=== PATIENT | female | born 1985 | race Caucasian/White ===

== ENCOUNTER 2017-04-07 17:05 | Emergency (ER) | payer MEDICAID ==
[~2017-04-07] VITALS: Ht 154.9 cm; Wt 50.3 kg
[2017-04-07 19:45] VITALS: BP 124/70
== END 2017-04-07 20:09 | disposition home or self-care (01) ==
LOC: ER 17:09
DX: O20.0 Threatened abortion (principal); Z3A.01 Less than 8 weeks gestation of pregnancy
CPT/HCPCS: 36415; 76801; 76817; 84702

== ENCOUNTER → 2017-04-24 | Outpatient (CLI) | payer MEDICAID ==
[2017-04-24 10:55] LABS: Basophils # (auto) 0.1 uL; Basophils % (auto) 0.6 % (0.0-2.0); Eosinophils # (auto) 0 uL; Eosinophils % (auto) 0.2 % (0.0-7.0); Hematocrit 38.9 % (36.0-46.0); Hemoglobin 13.2 g/dL (12.2-16.2); Lymphocytes # (auto) 1.1 uL; Lymphocytes % (auto) 12.4 % (10.0-50.0); Mean Corpuscular Volume 91.1 fL (80.0-100.0); Monocytes # (auto) 0.4 uL; Monocytes % (auto) 4.3 % (0.0-12.0); Neutrophils # (auto) 7.1 uL; Neutrophils % (auto) 82.5 % (37.0-80.0); Platelet Count (auto) 231 10^3/uL (140-450); Red Blood Cells 4.27 10^6/uL (4.0-5.20); Red Cell Distribution Width 13.1 % (11.8-14.3); White Blood Cell 8.6 10^3/uL (4.4-10.8)
[2017-04-24 11:55] LABS: Alcohol, Urine < 3.0 mg/dL (0-5); Amphetamine Screen, Urine NEGATIVE (NEGATIVE); Barbiturate Scree,Urine NEGATIVE (NEGATIVE); Benzodiazephine Screen, Urine NEGATIVE (NEGATIVE); Cannabinoid Screen, Urine POSITIVE (NEGATIVE); Cocaine Screen, Urine NEGATIVE (NEGATIVE); Opiate Scree,Urine NEGATIVE (NEGATIVE); Phencyclidine Screen, Urine NEGATIVE (NEGATIVE)
== END | disposition home or self-care (01) ==
LOC: LAB 10:18
PROVIDERS: ATTEND Specialist
DX: Z34.91 Encounter for supervision of normal pregnancy, unspecified, first trimester (principal); Z3A.01 Less than 8 weeks gestation of pregnancy
CPT/HCPCS: 36415; 80307; 83036; 84702; 85025; 86762; 86850; 86900; 86901; 87086; 87340; 87591

== ENCOUNTER 2017-06-09 03:49 | Day surgery (SDC) | payer MEDICAID ==
[~2017-06-09] VITALS: Ht 154.9 cm; Wt 52.3 kg
[2017-06-09] MEDS ORDERED: LACTATED RINGER'S 1,000 ML IV ONE (06:30)
[2017-06-09 06:39] LABS: Basophils # (auto) 0 uL; Basophils % (auto) 0.4 % (0.0-2.0); Eosinophils # (auto) 0.1 uL; Eosinophils % (auto) 0.7 % (0.0-7.0); Hematocrit 36.7 % (36.0-46.0); Hemoglobin 12.7 g/dL (12.2-16.2); Lymphocytes # (auto) 1.2 uL; Lymphocytes % (auto) 12.5 % (10.0-50.0); Mean Corpuscular Hemoglobin 31.3 pg (28.0-32.0); Mean Corpuscular Hgb Conc. 34.5 g/dL (32.0-36.0); Mean Corpuscular Volume 90.7 fL (80.0-100.0); Monocytes # (auto) 0.4 uL; Monocytes % (auto) 4.7 % (0.0-12.0); Neutrophils # (auto) 7.7 uL; Neutrophils % (auto) 81.7 % (37.0-80.0); Nucleated Red Blood Cells % 0.1 %; Platelet Count (auto) 226 10^3/uL (140-450); Red Blood Cells 4.04 10^6/uL (4.0-5.20); Red Cell Distribution Width 12.7 % (11.8-14.3); White Blood Cell 9.4 10^3/uL (4.4-10.8)
[2017-06-09 06:47] LABS: INR 0.86 (0.9-1.15); Partial Thromboplastin Time 29.6 sec (22.64-33.71); Prothrombin Time 9.4 sec (9.37-12.3)
[2017-06-09 06:54] LABS: Albumin 3.3 g/dL (3.4-5.0); Calcium 9.2 mg/dL (8.5-10.1)
[2017-06-09 06:56] LABS: Bilirubin, Total 0.2 mg/dL (0.2-1.0)
[2017-06-09] MEDS ORDERED: ceFAZolin 1GM/50ML 50 ML IV ONE (08:13)
[2017-06-09] MEDS ORDERED: PROPOFOL 10 MG/ML 20 ML IV ONE (08:50)
[2017-06-09] MEDS ORDERED: fentaNYL CITRATE 100 MCG/2 ML VL ONE (08:50)
[2017-06-09] MEDS ORDERED: LACTATED RINGER'S 1,000 ML IV SCH (09:23)
[2017-06-09] MEDS ORDERED: MORPHINE SULFATE 8mg/ml INJ SDV IV PRN (09:30)
[2017-06-09] MEDS ORDERED: ONDANSETRON HCL 4 MG/2 ML VIAL IV PRN (09:30)
[2017-06-09] MEDS ORDERED: ONDANSETRON HCL 4 MG/2 ML VIAL IV ONE (09:30)
[2017-06-09 10:11] VITALS: BP 111/62
== END 2017-06-09 11:08 | disposition home or self-care (01) ==
LOC: ER 03:49 → SUR 03:50 → ER 08:06 → SUR 11:08
PROVIDERS: ATTEND Specialist
DX: O34.32 Maternal care for cervical incompetence, second trimester (principal); Z3A.14 14 weeks gestation of pregnancy
CPT/HCPCS: 59320; J3010; 36415; 80053; 84702; 85025; 85610; 85730; 86850; 86900; 86901; J0690; J2405; J2704

== ENCOUNTER → 2017-06-26 | Outpatient (CLI) | payer MEDICAID | END | disposition home or self-care (01) | LOC: LAB 08:00 | PROVIDERS: ATTEND Specialist | DX: Z34.92 Encounter for supervision of normal pregnancy, unspecified, second trimester (principal); Z3A.17 17 weeks gestation of pregnancy | CPT/HCPCS: 87591 ==

== ENCOUNTER → 2017-08-15 | Outpatient (CLI) | payer MEDICAID ==
[2017-08-15 08:32] LABS: Basophils # (auto) 0 uL; Basophils % (auto) 0.5 % (0.0-2.0); Eosinophils # (auto) 0.1 uL; Eosinophils % (auto) 1.6 % (0.0-7.0); Hematocrit 35.4 % (36.0-46.0); Lymphocytes # (auto) 1.4 uL; Lymphocytes % (auto) 19.1 % (10.0-50.0); Monocytes # (auto) 0.4 uL; Monocytes % (auto) 5.4 % (0.0-12.0); Neutrophils # (auto) 5.5 uL; Neutrophils % (auto) 73.4 % (37.0-80.0); Platelet Count (auto) 191 10^3/uL (140-450); Red Blood Cells 3.89 10^6/uL (4.0-5.20); Red Cell Distribution Width 13.2 % (11.8-14.3); White Blood Cell 7.4 10^3/uL (4.4-10.8)
== END | disposition home or self-care (01) ==
LOC: LAB 07:56
PROVIDERS: ATTEND Specialist
DX: O99.810 Abnormal glucose complicating pregnancy (principal); Z3A.25 25 weeks gestation of pregnancy
CPT/HCPCS: 36415; 82951; 85025

== ENCOUNTER → 2017-10-31 | Outpatient (CLI) | payer MEDICAID ==
[2017-10-31 12:03] LABS: Basophils # (auto) 0 uL; Basophils % (auto) 0.4 % (0.0-2.0); Eosinophils # (auto) 0 uL; Eosinophils % (auto) 0.6 % (0.0-7.0); Hematocrit 37.1 % (36.0-46.0); Hemoglobin 12.4 g/dL (12.2-16.2); Lymphocytes # (auto) 1.5 uL; Lymphocytes % (auto) 17.6 % (10.0-50.0); Mean Corpuscular Hemoglobin 30.9 pg (28.0-32.0); Mean Corpuscular Hgb Conc. 33.5 g/dL (32.0-36.0); Mean Corpuscular Volume 92.3 fL (80.0-100.0); Monocytes # (auto) 0.4 uL; Monocytes % (auto) 5.1 % (0.0-12.0); Neutrophils # (auto) 6.3 uL; Neutrophils % (auto) 76.3 % (37.0-80.0); Platelet Count (auto) 201 10^3/uL (140-450); Red Blood Cells 4.02 10^6/uL (4.0-5.20); Red Cell Distribution Width 13.1 % (11.8-14.3); White Blood Cell 8.3 10^3/uL (4.4-10.8)
[2017-11-01 07:05] LABS: RPR Non Reactive (Non Reactive)
== END | disposition home or self-care (01) ==
LOC: LAB 11:28
PROVIDERS: ATTEND Specialist
DX: Z34.83 Encounter for supervision of other normal pregnancy, third trimester (principal); Z3A.35 35 weeks gestation of pregnancy
CPT/HCPCS: 36415; 85025; 86592

== ENCOUNTER 2017-11-18 10:05 | Observation (INO) | payer MEDICAID ==
[2017-11-18] MEDS ORDERED: NIF10C GT (12:37)
[2017-11-18] MEDS ORDERED: PREN-96 PO (12:37)
== END 2017-11-18 11:25 | disposition home or self-care (01) | DRG 566 ==
LOC: LDRP 10:05
PROVIDERS: ADMIT Specialist; ATTEND Specialist
DX: O36.5990 Maternal care for other known or suspected poor fetal growth, unspecified trimester, not applicable or unspecified (principal); Z3A.00 Weeks of gestation of pregnancy not specified
CPT/HCPCS: 59025; 76818; 81002; G0378

== ENCOUNTER 2017-11-22 08:40 | Observation (INO) | payer MEDICAID ==
[~2017-11-22 08:40] MED LIST: NIF10C GT; PREN-96 PO
== END 2017-11-22 10:40 | disposition home or self-care (01) | DRG 566 ==
LOC: EDSEX → LDRP 08:40
PROVIDERS: ADMIT Specialist; ATTEND Specialist
DX: O36.5930 Maternal care for other known or suspected poor fetal growth, third trimester, not applicable or unspecified (principal); Z3A.38 38 weeks gestation of pregnancy
CPT/HCPCS: 59025; 76818; 81002; G0378

== ENCOUNTER 2017-11-23 15:30 | Observation (INO) | payer MEDICAID ==
[2017-11-23] MEDS ORDERED: LACTATED RINGER'S 2,000 ML IV ONE (17:30)
[2017-11-23 18:19] LABS: Urine Amorphous Crystal FEW /hpf (None Seen); Urine Bacteria FEW /hpf (None Seen); Urine Blood Negative /uL (Negative); Urine Mucus FEW (None Seen); Urine Specific Gravity 1.007 (1.001-1.035); Urine WBC 15 /hpf (0 - 5); Urine WBC Clumps PRESENT /hpf (None Seen)
[2017-11-23 18:20] LABS: Alcohol, Urine < 3.0 mg/dL (0-5); Amphetamine Screen, Urine NEGATIVE (NEGATIVE); Barbiturate Scree,Urine NEGATIVE (NEGATIVE); Benzodiazephine Screen, Urine NEGATIVE (NEGATIVE); Cannabinoid Screen, Urine NEGATIVE (NEGATIVE); Cocaine Screen, Urine NEGATIVE (NEGATIVE); Opiate Scree,Urine NEGATIVE (NEGATIVE); Phencyclidine Screen, Urine NEGATIVE (NEGATIVE)
== END 2017-11-23 19:23 | disposition home or self-care (01) | DRG 566 ==
LOC: EDSEX → LDRP 15:30
PROVIDERS: ADMIT Obstetrics & Gynecology; ATTEND Obstetrics & Gynecology
DX: O26.893 Other specified pregnancy related conditions, third trimester (principal); Z3A.31 31 weeks gestation of pregnancy
CPT/HCPCS: 59025; 76815; 80307; 81001; 81002; G0378; 96361; 96366

== ENCOUNTER 2017-11-24 07:26 | Observation (INO) | payer MEDICAID | END 2017-11-24 08:40 | disposition home or self-care (01) | DRG 566 | LOC: EDSEX → LDRP 07:26 | PROVIDERS: ADMIT Obstetrics & Gynecology; ATTEND Obstetrics & Gynecology | DX: O41.03X0 Oligohydramnios, third trimester, not applicable or unspecified (principal); O36.5930 Maternal care for other known or suspected poor fetal growth, third trimester, not applicable or unspecified; Z3A.38 38 weeks gestation of pregnancy | CPT/HCPCS: 59025; 76815; 76818; 81002; G0378 ==

== ENCOUNTER 2017-11-28 03:42 | Inpatient (IN) | payer MEDICAID ==
[~2017-11-28] VITALS: Ht 154.9 cm; Wt 66.2 kg
[2017-11-28] VITALS (18 sets, daily range): BP systolic 58–112; BP diastolic 43–70
[2017-11-28] MEDS ORDERED: LACTATED RINGER'S 1,000 ML IV SCH (05:00)
[2017-11-28 05:50] LABS: Basophils # (auto) 0 uL; Basophils % (auto) 0.5 % (0.0-2.0); Eosinophils # (auto) 0.1 uL; Eosinophils % (auto) 0.8 % (0.0-7.0); Hematocrit 37.8 % (36.0-46.0); Hemoglobin 12.9 g/dL (12.2-16.2); Lymphocytes # (auto) 1.7 uL; Lymphocytes % (auto) 22.6 % (10.0-50.0); Mean Corpuscular Volume 94.1 fL (80.0-100.0); Monocytes # (auto) 0.5 uL; Monocytes % (auto) 6.1 % (0.0-12.0); Neutrophils # (auto) 5.3 uL; Nucleated Red Blood Cells % 0.2 %; Platelet Count (auto) 186 10^3/uL (140-450); Red Blood Cells 4.02 10^6/uL (4.0-5.20); Red Cell Distribution Width 13.3 % (11.8-14.3); White Blood Cell 7.5 10^3/uL (4.4-10.8)
[2017-11-28 06:09] LABS: INR 0.85 (0.9-1.15); Partial Thromboplastin Time 28.2 sec (23.78-33.04); Prothrombin Time 9.2 sec (9.27-12.13)
[2017-11-28 06:12] LABS: Albumin 2.9 g/dL (3.4-5.0); BUN/Creatinine Ratio 17.5; Calcium 8.7 mg/dL (8.5-10.1); Potassium 3.7 mmol/L (3.5-5.1)
[2017-11-28 06:15] LABS: Bilirubin, Total 0.2 mg/dL (0.2-1.0); Total Protein 6.6 g/dL (6.4-8.2)
[2017-11-28 06:24] LABS: Urine Amorphous Crystal FEW /hpf (None Seen); Urine Bacteria FEW /hpf (None Seen); Urine Blood Negative /uL (Negative); Urine Specific Gravity 1.009 (1.001-1.035); Urine WBC 6 /hpf (0 - 5)
[2017-11-28 06:35] LABS: Alcohol, Urine < 3.0 mg/dL (0-5); Amphetamine Screen, Urine NEGATIVE (NEGATIVE); Barbiturate Scree,Urine NEGATIVE (NEGATIVE); Benzodiazephine Screen, Urine NEGATIVE (NEGATIVE); Cannabinoid Screen, Urine NEGATIVE (NEGATIVE); Cocaine Screen, Urine NEGATIVE (NEGATIVE); Opiate Scree,Urine NEGATIVE (NEGATIVE); Phencyclidine Screen, Urine NEGATIVE (NEGATIVE)
[2017-11-28] MEDS ORDERED: TETRACAINE 1% INJ 2 ML VIAL IJ ONE (07:28)
[2017-11-28] MEDS ORDERED: PHENYLEPHRINE HCL 10 MG/ML VL IV ONE (08:32)
[2017-11-28] MEDS ORDERED: MORPHINE SULF(PF) 0.5MG/ML 10ML VIAL ONE (08:41)
[2017-11-28] MEDS ORDERED: fentaNYL CITRATE 100 MCG/2 ML VL ONE (08:41)
[2017-11-28] MEDS ORDERED: MIDAZOLAM HCL 1MG/1ML-2 ML VIAL ONE (08:41)
[2017-11-28] MEDS ORDERED: OXYTOCIN 10 UNIT/ML 10ML VIAL ONE (08:51)
[2017-11-28] MEDS ORDERED: ePHEDrine SULFATE 50 MG/ML AMP IV PRN (10:00)
[2017-11-28] MEDS ORDERED: MORPHINE SULFATE 4 MG/ML SYR/VIAL IV ONE (10:00)
[2017-11-28] MEDS ORDERED: diphenhdrAMINE HCL 50 MG/1 ML VL IV PRN (10:00)
[2017-11-28] MEDS ORDERED: HYDROmorphone HCL 2 MG/ML VL IV PRN (10:00)
[2017-11-28] MEDS ORDERED: NALOXONE HCL 0.4 MG/ML VIAL IV PRN (10:00)
[2017-11-28] MEDS ORDERED: ONDANSETRON HCL 4 MG/2 ML VIAL IV PRN ×2 (10:00→10:15)
[2017-11-28] MEDS ORDERED: LABETALOL HCL 5 MG/ML 4ML SYRINGE IV PRN (10:00)
[2017-11-28] MEDS ORDERED: MIDAZOLAM HCL 1MG/1ML-2 ML VIAL IV PRN (10:00)
[2017-11-28] MEDS ORDERED: DEXAMETHASONE SOD PHOS 10MG/1ML VIAL INJ IV PRN (10:00)
[2017-11-28] MEDS ORDERED: NALBUPHINE HCL 10 MG/1ml INJECTION SUBCUT ONE (10:00)
[2017-11-28] MEDS ORDERED: KETOROLAC TROMETH 30 MG/ML 1ML VIAL IV PRN (10:00)
[2017-11-28] MEDS: LACTATED RINGER'S 1,000 ML IV SCH (10:01)
[2017-11-28] MEDS ORDERED: MORPHINE SULFATE 4 MG/ML SYR/VIAL IV PRN (10:15)
[2017-11-28] MEDS ORDERED: METOCLOPRAMIDE HCL 5MG/ml INJ 2ml VIAL IV ONE (10:30)
[2017-11-28] MEDS ORDERED: ceFAZolin 1GM/50ML 50 ML IV SCH (10:30)
[2017-11-28] MEDS ORDERED: METOCLOPRAMIDE HCL 5MG/ml INJ 2ml VIAL ONE (10:30)
[2017-11-28] MEDS: KETOROLAC TROMETH 30 MG/ML 1ML VIAL IV SCH ×2 (12:30→17:50)
[2017-11-28] MEDS: ceFAZolin 1GM/50ML 50 ML IV SCH (16:46)
[2017-11-29] VITALS (9 sets, daily range): BP systolic 99–117; BP diastolic 52–75
[2017-11-29] MEDS: LACTATED RINGER'S 1,000 ML IV SCH ×3 (00:16→20:02)
[2017-11-29] MEDS: KETOROLAC TROMETH 30 MG/ML 1ML VIAL IV SCH ×2 (00:17→05:45)
[2017-11-29] MEDS: ceFAZolin 1GM/50ML 50 ML IV SCH ×2 (00:22→08:55)
[2017-11-29 06:51] LABS: Basophils # (auto) 0 uL; Basophils % (auto) 0.4 % (0.0-2.0); Eosinophils # (auto) 0 uL; Eosinophils % (auto) 0.4 % (0.0-7.0); Hematocrit 33.7 % (36.0-46.0); Hemoglobin 11.7 g/dL (12.2-16.2); Lymphocytes # (auto) 1.5 uL; Lymphocytes % (auto) 15.2 % (10.0-50.0); Mean Corpuscular Hemoglobin 32.1 pg (28.0-32.0); Mean Corpuscular Hgb Conc. 34.6 g/dL (32.0-36.0); Mean Corpuscular Volume 92.8 fL (80.0-100.0); Monocytes # (auto) 0.7 uL; Monocytes % (auto) 6.6 % (0.0-12.0); Neutrophils # (auto) 7.7 uL; Neutrophils % (auto) 77.4 % (37.0-80.0); Platelet Count (auto) 155 10^3/uL (140-450); Red Blood Cells 3.63 10^6/uL (4.0-5.20); Red Cell Distribution Width 13.3 % (11.8-14.3)
[2017-11-29 07:06] LABS: RPR Non Reactive (Non Reactive)
[2017-11-29] MEDS ORDERED: SIMETHICONE 80 MG CHEWABLE TABLET PO PRN (09:00)
[2017-11-29] MEDS: HYDROcodone-ACET 5/325MG TAB PO PRN ×3 (09:53→23:07)
[2017-11-29] MEDS: DOCUSATE SOD 100 MG CAP PO SCH ×2 (09:54→22:16)
[2017-11-29] MEDS: IBUPROFEN 800 MG TAB PO PRN (18:14)
[2017-11-30] VITALS (7 sets, daily range): BP systolic 97–111; BP diastolic 50–69
[2017-11-30] MEDS: LACTATED RINGER'S 1,000 ML IV SCH (05:00)
[2017-11-30] MEDS: IBUPROFEN 800 MG TAB PO PRN ×3 (06:10→23:56)
[2017-11-30] MEDS: DOCUSATE SOD 100 MG CAP PO SCH ×2 (10:13→23:56)
[2017-11-30] MEDS: HYDROcodone-ACET 5/325MG TAB PO PRN ×2 (11:51→17:52)
[2017-11-30] MEDS ORDERED: BISACODYL 10 MG RECT SUPP PR PRN (23:00)
[2017-12-01 03:30] VITALS: BP 111/70
[2017-12-01 07:10] VITALS: BP 122/68
[2017-12-01] MEDS ORDERED: INFLUENZA QUAD 2018-2019 0.5 ML SYRG IM ONE (08:00)
== END 2017-12-01 09:15 | disposition home or self-care (01) | DRG 540 ==
LOC: LDRP 03:42 → EDSEX 03:42 → LDRP 23:05
PROVIDERS: ADMIT Obstetrics & Gynecology; ATTEND Obstetrics & Gynecology
PROC: 10D00Z1 Extraction of Products of Conception, Low, Open Approach (ICD-10-PCS; principal; 2017-11-28 08:32)
PROC: 0UCC7ZZ Extirpation of Matter from Cervix, Via Natural or Artificial Opening (ICD-10-PCS; 2017-11-28 08:32)
DX: O99.824 Streptococcus B carrier state complicating childbirth (principal); O34.33 Maternal care for cervical incompetence, third trimester; O34.211 Maternal care for low transverse scar from previous cesarean delivery; Z37.0 Single live birth; Z3A.39 39 weeks gestation of pregnancy
CPT/HCPCS: 36415; 59025; 80053; 80307; 81001; 85025; 85610; 85730; 86592; 86850; 86900; 86901; 90674; 94762; 96365; 96366; 96375; J0690; J1885; J2250; J2405; J2590

== ENCOUNTER 2024-08-05 10:17 | Emergency (ER) | payer BC, MEDICAID ==
[~2024-08-05] VITALS: Ht 154.9 cm; Wt 51.3 kg
[~2024-08-05 10:17] MED LIST changes: -NIF10C GT
--- NOTE | 2024-08-05 10:31 | ED.PDOC ---
History of Present Illness HPI Comments 38 year old female with a Surgical History of C-Sections, and Tubes reversed presents to the ED for the c/c of Abnormal Vaginal Bleeding. Pt states that she is currently 6x weeks , and started spotting yesterday, and bleeding heavy today/. Pt denies any PMHx or other associated factors at this time. Time Seen by MD: 10:28 Primary Care Provider: INOCENCIA Ku Notes: Nurses Notes, Medications, Allergies Allergies: Coded Allergies: NO KNOWN ALLERGIES (Unverified , 04/07/17) Home Meds Reported Medications Vit W/ Ferrous Fumara ( One Daily) Daily Tab, 1 TAB PO DAILY, #90 TAB 3 Refills 11/18/17 Information Source: Patient Mode of Arrival: Ambulatory Severity: Moderate Timing: Days Duration: Since onset, Days Prehospital treatment: None Past Medical History PAST MEDICAL HISTORY: Denies Surgical History: Tubal Ligation LATHMAKER History: Denies all LATHMAKER Hx Family History Family History: Unknown Social History Smoker: Non-Smoker Alcohol: Denies ETOH Use Drugs: Denies Drug Use Lives In: Home Constitutional: denies: chills, diaphoresis, fatigue, fever, malaise, sweats, weakness, others EENTM: denies: blurred vision, double vision, ear bleeding, ear discharge, ear drainage, ear pain, ear ringing, eye pain, eye redness, hearing loss, mouth pain, mouth swelling, nasal discharge, nose bleeding, nose congestion, nose pain, photophobia, tearing, throat pain, throat swelling, voice changes, others Respiratory: denies: cough, hemoptysis, orthopnea, SOB at rest, shortness of breath, SOB with excertion, stridor, wheezing, others Cardiovascular: denies: chest pain, dizzy spells, diaphoresis, Dyspnea on exertion, edema, irregular heart beat, left arm pain, lightheadedness, palpitations, PND, syncope, others Gastrointestinal: denies: abdomen distended, abdominal pain, blood streaked bowels, constipated, diarrhea, dysphagia, difficulty swallowing, hematemesis, melena, nausea, poor appetite, poor fluid intake, rectal bleeding, rectal pain, vomiting, others Genitourinary: reports: abnormal vagina bleeding, ; denies: burning, dyspareunia, dysuria, flank pain, frequency, hematuria, incontinence, pain, vagina discharge, urgency, others Neurological: denies: dizziness, fainting, headache, left sided numbness, left sided weakness, numbness, paresthesia, pre-existing deficit, right sided numbness, right sided weakness, seizure, speech problems, tingling, tremors, weakness, others Musculoskeletal: denies: back pain, gout, joint pain, joint swelling, muscle pain, muscle stiffness, neck pain, others Integumetry: denies: bruises, change in color, change in hair/nails, dryness, laceration, lesions, lumps, rash, wounds, others Allergic/Immunocompromised: denies: Difficulty Healing, Frequent Infections, Hives, Itching, others Hematologic/Lymphatic: denies: anemia, blood clots, easy bleeding, easy bruising, swollen glands, others Endocrine: denies: excessive hunger, excessive sweating, excessive thirst, excessive urination, flushing, intolerance to cold, intolerance to heat, unexplained weight gain, unexplained weight loss, others Psychiatric: denies: anxiety, bipolar disorder, depression, hopeless, panic disorder, schizophrenia, sleepless, suicidal, others All Other Systems: Reviewed and Negative Physical Exam General Appearance: Mild Distress HEENT: Normal ENT Inspection, Pharynx Normal, TMs Normal Neck: Full Range of Motion, Non-Tender, Normal, Normal Inspection Respiratory: Chest Non-Tender, Lungs Clear, No Accessory Muscle Use, No Respir atory Distress, Normal Breath Sounds Cardiovascular: No Edema, No JVD, No Murmur, No Gallop, Normal Peripheral Pulses, Regular Rate/Rhythm Breast Exam: Deferred Gastrointestinal: No Organomegaly, Non Tender, No Pulsatile Mass, Normal Bowel Sounds, Soft Genitalia: Deferred Pelvic: Deferred Rectal: Deferred Extremities: No calf tenderness, Normal capillary refill, Normal inspection, Normal range of motion, Non-tender, No pedal edema Musculoskeletal : Apperance: Normal Neurologic: Alert, crimp setter II-XII nml as Tested, No Motor Deficits, Normal Affect, Normal Mood, No Sensory Deficits Cerebellar Function: Normal Reflexes: Normal Skin: Dry, Normal Color, Warm Lymphatic: No Adenopathy Was a procedure done? Was a procedure done?: No Differential Dx Considerations may include: Ectopic , abdominal pain, generalized weakness X-Ray, Labs, Meds, VS Vital Signs Date Time Temp Pulse Resp B/P (MAP) Pulse Ox O2 Delivery O2 Flow Rate FiO2 08/05/24 11:09 16 Room Air* 0 21 08/05/24 11:08 94 18 98 Room Air 08/05/24 11:08 97.9 84 18 142/82 (102) 98 97.9 08/05/24 10:30 98.2 114 16 157/83 (107) 98 98.2 Lab Test 08/05/24 10:46 08/05/24 10:25 Range/Units Beta HCG, Quantitative 208.2 H 1.5-4.2 mIU/mL Urine Color Light-yellow Yellow Urine Clarity Turbid H Clear Urine pH 6.0 5.0-9.0 Urine Specific [place]com 1.015 1.001-1.035 Urine Protein Negative Negative Urine Ketones 3+ H Negative Urine Blood 3+ H Negative /uL Urine Nitrite Negative Negative Urine Bilirubin Negative Negative Urine Urobilinogen Normal Negative mg/dL Urine Leukocyte Esterase Negative Negative /uL Urine RBC 59 0 - 4 /hpf Urine Microscopic WBC 2 0-5 /HPF Urine Squamous Epithelial Cells Few <5 /hpf Urine Bacteria None seen None Seen /hpf Urine Mucus Few None Seen Urine Glucose Normal Normal mg/dL IMPRESSION: Gestational sac measuring 0.3 cm with no pole visualized at this time. Recommend correlation with beta HCG and short-term follow-up pelvic ultrasound. Possible Hemorrhagic corpus luteal cyst in the right ovary measuring 1.7 cm. Possible solid structure in the right adnexa measuring 2.1 cm of indeterminate etiology. IMPRESSION: Gestational sac measuring 0.3 cm with no pole visualized at this time. Recommend correlation with beta HCG and short-term follow-up pelvic ultrasound. Possible Hemorrhagic corpus luteal cyst in the right ovary measuring 1.7 cm. Possible solid structure in the right adnexa measuring 2.1 cm of indeterminate etiology. The patient was evaluated by Dr. Silva who is the OBGYN on-call The patient will follow up with her appointment on The urine test is negative at this time The quantitative hCG is 208.2 At this time the patient is being discharged and will follow up with her OBGYN and Images Reviewed?: Images reviewed and evaluated by me Time of 1ST Reevaluation: 10:58 Reevaluation 1ST: Unchanged Patient Education/Counseling: Diagnosis, Treatment, Prognosis Family Education/Counseling: No Family Present SEPSIS Sepsis Screen Physician Orders Ob Ultrasound Comp Less 14wks (08/05/24 10:28) Ob Trans Vaginal Us (08/05/24 ) Vital Signs Date Time Temp Pulse Resp B/P (MAP) Pulse Ox O2 Delivery O2 Flow Rate FiO2 08/05/24 11:09 16 Room Air* 0 21 08/05/24 11:08 94 18 98 Room Air 08/05/24 11:08 97.9 84 18 142/82 (102) 98 97.9 08/05/24 10:30 98.2 114 16 157/83 (107) 98 98.2 Departure 1 Departure Time of Disposition: 12:57 Impression: Primary Impression: Threatened Disposition: 01 HOME / SELF CARE / HOMELESS Condition: Fair Discharged With: Self Critical Care Note Critical Care Time?: No Stability Stability form required: No Heart Score Heart Score: Heart Score Response (Comments) Value History N/A 0 EKG N/A 0 Age N/A 0 Risk Factors N/A 0 Troponin N/A 0 Total 0 I personally scribed for PEYTON DEWITT MD ([email or web address]) on 08/05/24 at 10:31. Electronically submitted by Matt Montalvo ([email or web address]). I personally scribed for PEYTON DEWITT MD ([email or web address]) on 08/05/24 at 12:47. Electronically submitted by Matt Montalvo ([email or web address]). PEYTON DEWITT MD Aug 05, 2024 10:31
[2024-08-05 11:08] VITALS: BP 142/82; PULSE 94; TEMP 97.9; O2SAT 98
[2024-08-05 11:09] VITALS: RESP 16
[2024-08-05 12:03] LABS: Urine Bacteria None Seen /hpf (None Seen)
[2024-08-05 12:21] LABS: Urine Blood 3+ /uL (Negative); Urine Clarity Turbid (Clear); Urine Color Light-Yellow (Yellow); Urine Mucus FEW (None Seen); Urine Protein, UAD Negative (Negative); Urine Specific Gravity 1.015 (1.001-1.035); Urine Squamous Epithelial Cell FEW /hpf (<5); Urine Urobilinogen Normal (Negative); Urine WBC 2 /HPF (0-5)
--- NOTE | 2024-08-05 12:40 | DVH ---
OB ULTRASOUND <14 WEEKS: HISTORY: vag bleeding TECHNIQUE: Multiple real-time grayscale sonographic images of the pelvis with duplex Doppler color f low, spectral and M-mode analysis. TRANSDUCERS: Transabdominal and transvaginal FINDINGS: The uterus measures 10.2 x 5.1 x 5.5 cm. The cervix not well visualized Right ovary measures 3.3 x 3.5 x 2.0 cm with normal Doppler color flow. Possible Hemorrhagic corpus luteal Cyst in the right ovary measuring 1.7 cm. Possible solid structure in the right adnexa measuri ng 2.1 cm of indeterminate etiology. Left ovary measures 2.4 x 3.0 x 1.4 cm with normal Doppler color flow Gestational sac is visualized in the endometrial cavity measuring 0.3 cm. No pole or heart rate detected at this time. No yolk sac visualized. IMPRESSION: Gestational sac measuring 0.3 cm with no pole visualized at this time. Recommend correlation w ith beta HCG and short-term follow-up pelvic ultrasound. Possible Hemorrhagic corpus luteal cyst in the right ovary measuring 1.7 cm. Possible solid structure in the right adnexa measuring 2.1 cm of indeterminate etiology.
--- NOTE | 2024-08-05 13:24 | DVHINCON2 ---
Date of service: Aug 05, 2024 Referring Physician Young ER attending Reason for Consultation Patient has been bleeding for several weeks estimated at 6 weeks last menstrual period June 23, 2019 ; patient well known to Mariana Andino her primary gynecology teacher. She has been followed closely weekly for threatened SAB. Today ultrasound shows sac intrauterine questionable viability and some suspicious adnexal solid cystic lesion can not rule out ectopic. Quant HCG 250. On exam today she has no significant peritoneal signs no cervical motion tenderness cervix is closed. She has a follow up appointment with her primary Dr. Andino this which I encouraged her to keep and she will be given copies of her quant HCG as well as ultrasound findings in the ER today. I did counts were with regards to worsening bleeding severe pain if those were to occur she is to follow up BRANDIE NPO for possible D and C diagnostic laparoscopy. History of Present Illness History Source: Patient Exam Limitations: No limitations Home Meds Reported Medications Vit W/ Ferrous Fumara ( One Daily) Daily Tab, 1 TAB PO DAILY, #90 TAB 3 Refills 11/18/17 Chief Complaint of Abdominal/F: Other (Patient denies any pelvic abdominal pain) Past Medical History Cardiac: No pertinent Hx Pulmonary: No pertinent Hx Central Nervous System: No pertinent Hx GI: No pertinent Hx Hemotology/Oncology: No pertinent Hx Hepatobiliary: No pertinent Hx Psychiatric: No pertinent Hx Musculoskeletal: No pertinent Hx Rheumotologic: No pertinent Hx Infectious Disease: No peritnent Hx ENT: No pertinent Hx Renal/: No pertinent Hx Endocrine: No pertinent Hx Dermatology: No pertinent Hx Past Surgical History: (Cysts section x4 with a recent tubal reanastomosis as she lost her 1st child in a MVA who was her only son and they are trying to conceive a boy once again.) Family History: No pertinent Hx Review of Systems Constitutional: No symptom reported Ears, Nose, & Throat: No symptom reported Eyes: No symptom reported Pulmonary/Respiratory: No symptom reported Cardiovascular: No symptom reported Gastrointestinal: No symptom reported Genitourinary: No symptom reported Musculoskeletal: No symptom reported Skin: No symptom reported Psychiatric: No symptom reported Endocrine: No symptom reported Hemotologic/Lymphatic: No symptom reported H&P Exam Vital Signs Vital Signs Date Time Temp Pulse Resp B/P (MAP) Pulse Ox O2 Delivery O2 Flow Rate FiO2 08/05/24 11:09 16 Room Air* 0 21 08/05/24 11:08 94 98 08/05/24 11:08 97.9 142/82 (741) 97.9 General Appeara: Well developed, Well nourished, Normal Appearance Head Exam: Normal inspection Neck Exam: Normal inspection, Non-tender, Normal alignment Eye Exam: bilateral eye Normal inspection, bilateral eye PERRL, bilateral eye EOMI Ear Exam: bilateral ear Auricle normal, bilateral ear Canal normal, bilateral ear TM normal Nasal Exam: Normal inspection Mouth: Normal Inspection Pulmonary/Respiratory: Normal inspection, Normal breath sounds, Chest non- tender, Lungs clear Cardiovascular/Chest: Normal inspection, Regular rate, Normal Rhythm Abdominal Exam: Normal bowel sounds, Soft, No tenderness, No hepatospenomegaly, No masses Rectal Exam: Normal inspection Back Exam: Normal inspection Pelvic Exam: External exam normal, Bimanual exam normal, Speculum exam normal Male Genital Exam: Normal genitalia, Normal prostate Shoulder Exam: Normal inspection, Non-tender, Normal ROM Elbow/Forearm Exam: Normal inspection, Non-tender, Normal ROM Wrist Exam: Normal inspection, Non-tender, Normal ROM Hand Exam: Normal inspection, Non-tender, Normal ROM Hip exam: Normal inspection, Non-tender, Normal range of motion Legs: bilateral leg non-tender, bilateral leg normal inspection, bilateral leg normal range of motion, bilateral leg no evidence of injury Knees: bilateral knee non-tender, bilateral knee normal inspection, bilateral knee normal range of motion, bilateral knee no evidence of injury Ankle Exam: bilateral ankle Normal inspection, bilateral ankle Non-tender, bilateral ankle Normal range of motion, bilateral ankle No evidence of injury Foot: bilateral foot non-tender, bilateral foot normal inspection, bilateral foot normal range of motion, bilateral foot no evidence of injury Tendon/ Neuro: Normal sensation, Normal motor function, Normal tendon functions STUDENT DEVELOPMENT ADVISOR Exam: Normal hearing, Normal speech, PERRL Motor/Sensory: Normal sensory function, Normal motor function, Negative Babinski's sign Deep Tendon Ref: All intact Neuro/Mental St: Alert, Oriented Appearance: Appropriate appearance, Appropriate insight Eye contact/ Speech: Cooperative, Good eye contact, Normal speech Coordination/Gait: Normal finger->nose, Normal gait, Negative Romberg's sign Skin Exam: Normal inspection, Normal color, Warm/dry Lymphatic: Normal inspection Comments Abdomen soft positive bowel sounds no peritoneal signs no cervical motion tenderness cervix closed minimal old venous blood no active bleeding. Labs/Xrays Labs Test 08/05/24 10:46 08/05/24 10:25 Range/Units Beta HCG, Quantitative 208.2 H 1.5-4.2 mIU/mL Urine Color Light-yellow Yellow Urine Clarity Turbid H Clear Urine pH 6.0 5.0-9.0 Urine Specific [place] 1.015 1.001-1.035 Urine Protein Negative Negative Urine Ketones 3+ H Negative Urine Blood 3+ H Negative /uL Urine Nitrite Negative Negative Urine Bilirubin Negative Negative Urine Urobilinogen Normal Negative mg/dL Urine Leukocyte Esterase Negative Negative /uL Urine RBC 59 0 - 4 /hpf Urine Microscopic WBC 2 0-5 /HPF Urine Squamous Epithelial Cells Few <5 /hpf Urine Bacteria None seen None Seen /hpf Urine Mucus Few None Seen Urine Glucose Normal Normal mg/dL Assessment/Plan Admitting Diagnosis: Threatened SAB doubt ectopic but will follow for possible ectopic follow up with Dr. Andino in 72 hours or follow up in ER PRN severe bleeding or pain NPO Plan discussed with: Patient (I discussed the case with Dr. Vidal ER attending agrees with management.) SVETLANA RUDOLPH DO Aug 05, 2024 13:24
== END 2024-08-05 13:31 | disposition home or self-care (01) ==
LOC: ER 10:17
DX: O20.0 Threatened abortion (principal); Z3A.01 Less than 8 weeks gestation of pregnancy
CPT/HCPCS: 36415; 76801; 76817; 81001; 84702